=== PATIENT | female | born 1990 | race Two or more races ===

== ENCOUNTER 2016-06-14 18:58 | Emergency (ER) | payer OTHER ==
[~2016-06-14] VITALS: Ht 162.6 cm; Wt 159.7 kg
[2016-06-14] MEDS ORDERED: cefTRIAXone SOD 1,000 MG VL IM ONE (21:30)
[2016-06-14 22:04] LABS: Albumin 3.1 g/dL (3.4-5.0); BUN/Creatinine Ratio 14.3; Calcium 8.9 mg/dL (8.5-10.1); Potassium 4.1 mmol/L (3.5-5.1)
[2016-06-14 22:06] LABS: Hematocrit 37.8 % (36.0-46.0); Hemoglobin 12.6 g/dL (12.2-16.2); Mean Corpuscular Hemoglobin 27.2 pg (28.0-32.0); Mean Corpuscular Hgb Conc. 33.5 g/dL (32.0-36.0); Mean Corpuscular Volume 81.3 fL (80.0-100.0); Mean Platelet Volume 8.1 fL (7.4-10.4); Platelet Count (auto) 522 10^3/uL (140-450); Red Cell Distribution Width 14.2 % (11.6-16.0); SUSPECT VIEW TRANSMISSION; White Blood Cell 20.5 10^3/uL (4.4-10.8)
[2016-06-14 22:07] LABS: Bilirubin, Total 0.4 mg/dL (0.2-1.0); Total Protein 8.3 g/dL (6.4-8.2)
[2016-06-14 22:09] LABS: Metamyelocytes % 0; Myelocytes % 0; Promyelocytes % 0; Reactive Lymphocytes 0
[2016-06-14 22:23] LABS: Urine Bilirubin Negative (Negative); Urine Blood 3+ /uL (Negative); Urine Color Yellow (Yellow); Urine Glucose Normal (Normal); Urine Ketone Negative (Negative); Urine Mucus FEW (None Seen); Urine Nitrite Negative (Negative); Urine RBC 75 /hpf (0 - 4); Urine Squamous Epithelial Cell FEW /hpf (<5); Urine Urobilinogen Normal (Negative); Urine pH 5.5 (5.0-8.0)
[2016-06-14 22:34] VITALS: BP 149/74
[2016-06-14 22:46] LABS: Platelet Estimate Increased
[2016-06-14 22:47] LABS: Polychromasia Slight
[2016-06-14] MEDS ORDERED: cefTRIAXone 1GM/50ML D5W 50 ML IV ONE (23:00)
[2016-06-15] MEDS ORDERED: SODIUM CHLORIDE 0.9% 1,000 ML IV ONE (00:30)
[2016-06-15] MEDS ORDERED: ETOMIDATE (2MG/ML) 20ML VIAL IV ONE (00:30)
== END 2016-06-15 04:44 | disposition home or self-care (01) ==
LOC: ER 18:58
DX: L02.31 Cutaneous abscess of buttock (principal); I10 Essential (primary) hypertension
CPT/HCPCS: 10060; 36415; 80053; 81001; 83605; 85007; 85027; 87040; 87077; 87186; 87205; 96361; 96365; 99152; 99285; J0696; J7030

== ENCOUNTER 2016-06-18 11:23 | Emergency (ER) | payer SELFPAY ==
[~2016-06-18] VITALS: Ht 162.6 cm; Wt 159.7 kg
[2016-06-18 12:23] VITALS: BP 152/90
== END 2016-06-18 12:30 | disposition home or self-care (01) ==
LOC: ER 11:23
DX: L02.31 Cutaneous abscess of buttock (principal); I10 Essential (primary) hypertension; Z48.01 Encounter for change or removal of surgical wound dressing
CPT/HCPCS: 10060

== ENCOUNTER 2016-06-21 11:28 | Emergency (ER) | payer SELFPAY ==
[~2016-06-21] VITALS: Ht 162.6 cm; Wt 159.7 kg
[2016-06-21 12:14] VITALS: BP 133/84
== END 2016-06-21 12:56 | disposition home or self-care (01) ==
LOC: ER 11:28
DX: L02.91 Cutaneous abscess, unspecified (principal); I10 Essential (primary) hypertension; Z48.01 Encounter for change or removal of surgical wound dressing

== ENCOUNTER 2016-09-16 17:05 | Emergency (ER) | payer MEDICAID, OTHER ==
[~2016-09-16] VITALS: Ht 162.6 cm; Wt 150.1 kg
[2016-09-16 17:47] VITALS: BP 149/86
== END 2016-09-16 17:58 | disposition home or self-care (01) ==
LOC: ER 17:17
DX: L02.31 Cutaneous abscess of buttock (principal); I10 Essential (primary) hypertension
CPT/HCPCS: 10060